=== PATIENT | female | born 1990 | race Caucasian/White ===

== ENCOUNTER 2021-01-21 21:25 | Emergency (ER) | payer OTHER ==
[~2021-01-21] VITALS: Ht 160 cm; Wt 54.4 kg
[2021-01-21] MEDS ORDERED: ERYT1OIN LEFTEYE (23:51)
== END 2021-01-22 00:17 | disposition home or self-care (01) ==
LOC: ER 21:25
DX: S05.02XA Injury of conjunctiva and corneal abrasion without foreign body, left eye, initial encounter (principal); R51.9 Headache, unspecified; W22.8XXA Striking against or struck by other objects, initial encounter
CPT/HCPCS: 99283; A9270